=== PATIENT | female | born 1955 | race Caucasian/White ===

== ENCOUNTER 2022-01-06 19:01 | Emergency (ER) | payer MEDICARE, OTHER, SELFPAY ==
--- NOTE | 2022-01-06 19:28 | ED.URI ---
HPI - URI/Sore Throat General Chief Complaint: Upper Respiratory Infection Stated Complaint: ear pain and sore throat Time Seen by Provider: 01/06/22 19:29 Source: patient and RN notes reviewed History of Present Illness HPI Narrative: Patient is 66-year-old female who presents the urgent care with complaints of left ear pain and sore throat that started last night. Patient states that she took Aleve with mild improvement. Patient denies of any ill exposures but she is concerned for strep because she is around her grandkids. Also reports of a mild headache without fever, nausea or vomiting. No other acute complaints. No acute distress noted. Patient aware of the plan of care. Some parts of this dictation were generated by voice recognition software and may contain typographical and/or grammatical inaccuracies. Related Data Home Medications Medication Instructions Recorded Confirmed chlorthalidone 25 mg tablet 25 mg PO DAILY 01/06/22 01/06/22 famotidine 20 mg tablet 20 mg PO DAILY 01/06/22 01/06/22 levothyroxine 137 mcg tablet 137 mcg PO DAILY 01/06/22 01/06/22 Allergies Allergy/AdvReac Type Severity Reaction Status Date / Time No Known Allergies Allergy Unverified 01/06/22 19:39 Review of Systems Review of Systems: CONSTITUTIONAL: Denies fever, chills, or sweats. EYES: Denies visual changes, redness, or discharge. ENT: Reports of left otalgia and sore throat CARDIOVASCULAR: Denies chest pain, palpitations, or edema. RESPIRATORY: Denies cough or dyspnea. GASTROINTESTINAL: Denies abdominal pain, nausea, vomiting, or diarrhea. GENITOURINARY: Denies dysuria or hematuria. SKIN: Denies rash or itching. MUSCULOSKELETAL: Denies back pain, joint pain, or myalgia. NEUROLOGIC: Reports of headache All other systems reviewed are negative, except as documented in HPI. PMFSH Social History Social History Alcohol intake: current Comments At the time of my signature, I reviewed and agree with the nursing past medical, surgical, social, and family history. There is no relevant family history pertinent to the patient complaint. Exam Narrative: GENERAL: This is a well-nourished, well-developed patient, in no apparent distress. HEAD: normocephalic, atraumatic. EYES: PERRL. Sclera clear/white. Vision is grossly intact. EARS: External ears normal, auditory canals clear and without drainage, TMs normal without perforation. Hearing grossly intact. NOSE: External nose normal with no obvious nasal discharge, nares without redness, no rhinorrhea. THROAT: Mucous membranes moist, mild erythema noted to the left posterior oropharynx with moderate postnasal drainage NECK: Neck supple CARDIOVASCULAR: Regular rate and rhythm without murmurs, gallops, or rubs. RESPIRATORY: Clear to auscultation. Breath sounds equal bilaterally. No wheezes, rales, or rhonchi. SKIN: warm, intact with no suspicious lesions or rash, good texture and turgor. NEURO: awake, alert, and oriented to person, place and time. There were no obvious focal neurologic abnormalities. EXTREMITIES: No clubbing, cyanosis, or edema. Course Course Level of Care: Express Care Visit Vital Signs Vital signs: Vital Signs Temperature 98.3 F 01/06/22 19:41 Pulse Rate 106 H 01/06/22 19:41 Respiratory Rate 16 01/06/22 19:41 Blood Pressure 150/73 H 01/06/22 19:41 Pulse Oximetry 98 01/06/22 19:41 Oxygen Delivery Room Air 01/06/22 19:41 Temperature 98.3 F 01/06/22 19:41 Pulse Rate 106 H 01/06/22 19:41 Respiratory Rate 16 01/06/22 19:41 Blood Pressure 150/73 H 01/06/22 19:41 Pulse Oximetry 98 01/06/22 19:41 Oxygen Delivery Room Air 01/06/22 19:41 Reviewed-patient is informed that they may have pre-hypertension or hypertension based on a blood pressure reading in the department. I recommend the patient call the primary care provider listed on their discharge instructions or a physician of their choice this week to arrange follow-up for lazarus
[2022-01-06 19:41] VITALS: BP 150/73; PULSE 106; RESP 16; TEMP 36.8; O2SAT 98
== END 2022-01-06 19:59 | disposition home or self-care (01) ==
PROVIDERS: Emergency Provider Nurse Practitioner Family; PCP Internal Medicine
DX: J02.9 Acute pharyngitis, unspecified (principal); I10 Essential (primary) hypertension; K21.9 Gastro-esophageal reflux disease without esophagitis
CPT/HCPCS: 87081; 87880; 99203; G0463

== ENCOUNTER 2022-03-05 10:03 | Emergency (ER) | payer MEDICARE, OTHER, SELFPAY ==
[2022-03-05 10:12] VITALS: BP 149/61; PULSE 108; RESP 16; TEMP 36.1; O2SAT 98
--- NOTE | 2022-03-05 12:36 | ED.URI ---
HPI - URI/Sore Throat General Chief Complaint: Upper Respiratory Infection Stated Complaint: sore throat w spots Time Seen by Provider: 03/05/22 12:20 Source: patient, RN notes reviewed and old records reviewed Mode of arrival: ambulatory Limitations: no limitations History of Present Illness HPI Narrative: 66 year old female accompanied by spouse who is also ill presents to express care with complaints of sore throat with white spot on tonsils, low grade fevers since Thursday Patient reports that she has been gargling with salt water which has helped some but continues to have discomfort.Patient has been COVID vaccinated and also has had flu shot. MD elicited complaint: fever (low grade) and sore throat Onset (ago): day(s) (2 days ago) Pain scale (0-10): 6 Treatments prior to arrival: other (salt water gargles) Related Data Home Medications Medication Instructions Recorded Confirmed chlorthalidone 25 mg tablet 25 mg PO DAILY 01/06/22 03/05/22 famotidine 20 mg tablet 20 mg PO DAILY 01/06/22 03/05/22 levothyroxine 137 mcg tablet 137 mcg PO DAILY 01/06/22 03/05/22 Allergies Allergy/AdvReac Type Severity Reaction Status Date / Time No Known Allergies Allergy Unverified 03/05/22 12:15 Review of Systems Review of Systems: CONSTITUTIONAL: Denies malaise, chills, sweats, low grade fever. EYES: Denies visual changes, redness, or discharge. ENT: Reports rhinorrhea, congestion, no sinus pain,no otalgia and positive sore throat. CARDIOVASCULAR: Denies chest pain, palpitations, or edema. RESPIRATORY: No reported cough.? Denies dyspnea. GASTROINTESTINAL: Denies abdominal pain, nausea, vomiting, diarrhea SKIN: Denies rash or itching. MUSCULOSKELETAL: Denies myalgia. NEUROLOGIC: Denies headache. All systems reviewed & are unremarkable except as noted in HPI and below PMFSH Past Medical History Medical History (Updated 03/06/22 @ 15:26 by Farideh Jorge NP) Elevated cholesterol GERD (gastroesophageal reflux disease) Hypertension Hypothyroid Surgical History Surgical History (Updated 03/06/22 @ 15:30 by Farideh Jorge NP) History of thyroid surgery Social History Social History (Updated 03/06/22 @ 15:30 by Farideh Jorge NP) Smoking status: Never smoker Alcohol intake: current Substance use: never Living arrangements: with family Gender identity (if verbalized by the patient): Female Comments At time of signature, agree with nursing past medical, surgical, social and family history. There is no relevant family history pertinent to the presenting complaint Exam Narrative: GENERAL: Well-appearing, well-nourished, and in no acute distress. HEAD: Normocephalic EYES: PERRLA, conjunctivae clear ENT: Nares clear, turbinates edematous and erythematous, clear discharge. Mucous membranes moist. TM pearly miranda with dull light reflex bilaterally; no tragal tenderness. Oropharynx erythematous without lesions. Tonsils enlarged and with white exudates, no drooling, no hoarseness, no trismus, uvula midline. NECK: Supple. No lymphadenopathy CHEST: Clear to auscultation, breath sounds equal. No wheezing, rhonchi, rales, or stridor. No respiratory distress, speaks in full sentences.no cough noted SAO2 98% on room air HEART: Regular rate and rhythm. No murmur heard. SKIN: Warm, dry, no rash. NEURO: Alert and oriented x3. PSYCH: Normal mood and affect Course Course Emergency Course: Patient is aware of diagnosis, understands and agrees to treatment plan.? Anticipatory guidance given.? Patient agrees to follow-up as directed and is aware of reasons to seek care at the emergency department. Portions of this record may have been created with voice recognition software Level of Care: Express Care Visit Vital Signs Vital signs: Vital Signs Temperature 36.1 C L 03/05/22 10:12 Pulse Rate 108 H 03/05/22 10:12 Respiratory Rate 16 03/05/22 10:12 Blood Pressure 149/61 H 12
== END 2022-03-05 12:45 | disposition home or self-care (01) ==
PROVIDERS: Emergency Provider Registered Nurse; PCP Physician Assistant
DX: J02.0 Streptococcal pharyngitis (principal); E78.00 Pure hypercholesterolemia, unspecified; K21.9 Gastro-esophageal reflux disease without esophagitis; I10 Essential (primary) hypertension; E03.9 Hypothyroidism, unspecified
CPT/HCPCS: 99213; G0463

== ENCOUNTER 2022-10-06 09:30 | Emergency (ER) | payer MEDICARE, OTHER, SELFPAY ==
[2022-10-06] VITALS (7 sets, daily range): BP systolic 123–159; BP diastolic 64–98; PULSE 65–99; RESP 16–18; TEMP 36.3–36.7; O2SAT 96–99
--- NOTE | ~2022-10-06 | XR_ITS ---
EXAMINATION: XR knee LT 3V DATE: 10/06/2022 10:37 INDICATION: Left knee pain TECHNIQUE: Three views of the left knee were obtained. COMPARISON: None. FINDINGS: Alignment is normal. No fracture or osteochondral lesion. There is mild tricompartmental os teoarthritis characterized by tiny marginal osteophytes. No joint effusion/synovitis. Soft tissues a re unremarkable. IMPRESSION: 1. No acute osseous abnormality. Reviewed, dictated and finalized at location B.
--- NOTE | ~2022-10-06 | XR_ITS ---
EXAMINATION: XR knee RT 3V DATE: 10/06/2022 10:37 INDICATION: Right knee pain TECHNIQUE: Three views of the right knee were obtained. COMPARISON: None. FINDINGS: Alignment is normal. No fracture or osteochondral lesion. There is mild tricompartmental os teoarthritis characterized by tiny marginal osteophytes. No joint effusion/synovitis. Soft tissues a re unremarkable. IMPRESSION: 1. No acute osseous abnormality. Reviewed, dictated and finalized at location B.
--- NOTE | ~2022-10-06 | XR_ITS ---
EXAMINATION: XR toe 1st LT min 2V INDICATION: Left first toe pain TECHNIQUE: Three views of the left first toe are obtained. COMPARISON: None available FINDINGS: Bone alignment is normal. No displaced fracture is identified. There is moderate osteoarthr itis at the first metatarsophalangeal joint. IMPRESSION: 1. No acute osseous abnormality. Reviewed, dictated and finalized at location B.
--- NOTE | ~2022-10-06 | CT_ITS ---
EXAMINATION: CT brain wo con INDICATION: Head injury COMPARISON: None TECHNIQUE: Standard unenhanced head CT. The dose-length product (DLP) was 605.33 mGy-cm. The mA was a djusted according to patient size. Iterative reconstruction technique was employed. FINDINGS: There is a 7 mm x 6 mm area of hyperattenuation in the anterior aspect of the left corpus c allosum. An adjacent calcification is seen inferiorly. No evidence of acute infarction. There is mild periventricular and subcortical hypodensity probably related to small vessel ischemic disease. There is mild prominence of the sulci and ventricles related to cerebral atrophy. Intracranial calcified c erebral atherosclerosis is noted. There are no extra-axial collections. There is no mass effect or mi dline shift. The orbits and soft tissues are unremarkable. The visualized sinuses and mastoid air rome ls are well aerated. IMPRESSION: 1. Small focus of hyperattenuation in the anterior aspect of the left corpus callosum. Although diffe rential includes focal hemorrhage in the presence of head injury, finding may reflect a small mass or vascular abnormality. Follow-up MRI without and with contrast is recommended. 2. Age related findings. These findings and recommendations were discussed with Dr. Holli Armijo MD in the Emergency Departme nt at 1041 hours on 10/06/2022. Reviewed, dictated and finalized at location B. IMPRESSION: 1. Small focus of hyperattenuation in the anterior aspect of the left corpus ca llosum. Although differential includes focal hemorrhage in the presence of head injury, finding may reflect a small mass or vascular abnormality. Follow-up MR I without and with contrast is recommended. 2. Age related findings. These findings and recommendations were discussed with Dr. Holli Armijo MD in the Emergency Department at 1041 hours on 10/06/2022.
--- NOTE | 2022-10-06 09:52 | ED.FALL ---
HPI - Fall General Chief Complaint: Fall Stated Complaint: fall/ head injury Time Seen by Provider: 10/06/22 09:52 History of Present Illness HPI Narrative: 67-year-old female patient is here with complaints of a ground level fall after she tripped over some gravel and landed on the concrete. She states that she hit her head very hard on the right side and has headache mostly on the left side now. She denies any loss of consciousness. She denies any neck pain. She also struck both her knees on the gravel and has pain more in the left knee than the right. She has been able to ambulate since the fall. She denies any injuries to her upper extremities. She denies any difficulty breathing. Patient takes occasional aspirin but has not taken any in the last few days. Otherwise she is not on any blood thinners. She does take medications for hypercholesterolemia and thyroid. Patient is unsure about her tetanus. Related Data Home Medications Medication Instructions Recorded Confirmed chlorthalidone 25 mg tablet 25 mg PO DAILY 01/06/22 10/06/22 levothyroxine 137 mcg tablet 137 mcg PO DAILY 01/06/22 10/06/22 atorvastatin 10 mg tablet 10 mg PO DAILY 10/06/22 10/06/22 Allergies Allergy/AdvReac Type Severity Reaction Status Date / Time lisinopril AdvReac Cough Verified 10/06/22 09:46 Review of Systems Review of Systems: All systems reviewed & are unremarkable except as noted in HPI and below PMFSH Past Medical History Medical History Elevated cholesterol GERD (gastroesophageal reflux disease) Hypertension Hypothyroid Surgical History Surgical History History of thyroid surgery Social History Social History Smoking status: Never smoker Alcohol intake: current Substance use: never Living arrangements: with family Gender identity (if verbalized by the patient): Female Exam Narrative: Alert female patient who appears in no acute distress. Vital signs are stable. Initial blood pressure is slightly elevated at 144/98. HEENT: patient has a superficial abrasion on the outer edge of the right supraorbital area with no hematoma or lacerations in the vicinity. The rest of the scalp was nontender. No other facial injuries or abnormalities are noted. Pupils are midsize equal and reactive to light. EOMs are intact. Ear nose throat appeared to be normal. Neck is supple. There is no midline tenderness. There are no distracting injuries. Chest wall is nontender. Breath sounds are audible bilaterally. Heart tones are regular. Abdomen is soft and nontender. Bowel sounds are active. No tenderness on pelvic rock. Both knees have abrasions in prepatellar areas without any swelling or hematoma. There is tenderness on palpation of the patella on the left side greater than the right. The range of motion of the knee is intact and in full. The patient is able to ambulate without difficulty. A small abrasion is noted to the left toe and there is slight bruising around it. Patient does have tenderness on palpation of the big toe on the left side. Upper extremities are atraumatic. Skin is warm and dry skin turgor is normal. Neurologic examination is grossly normal. Mood and affect are normal. Course Course Emergency Course: X-ray of bilateral knees and toe shows no fracture. CT of the head has been reported as positive for a Small focus of hyperattenuation in the anterior aspect of the left corpus callosum with differential including hemorrhage, mass or AV malformation according to the radiologist. Recommendations are either an MRI with and without or a CT scan in 6-8 hours. Since there is no MRI available here I did discuss the patient with the hospitalist nurse practitioner Nancy Sorensen for a possible admission and neuro checks and repeat
[2022-10-06] MEDS: TETANUS,DIPHTHERIA,AC PERTUSSIS ADULT 0.5 ML (ADACEL) IM (10:21)
== END 2022-10-06 14:25 | disposition short-term general hospital (02) ==
PROVIDERS: Emergency Provider Emergency Medicine; PCP Physician Assistant
DX: S05.11XA Contusion of eyeball and orbital tissues, right eye, initial encounter (principal); S80.212A Abrasion, left knee, initial encounter; S80.211A Abrasion, right knee, initial encounter; R93.0 Abnormal findings on diagnostic imaging of skull and head, not elsewhere classified; I10 Essential (primary) hypertension; E03.9 Hypothyroidism, unspecified; Z23 Encounter for immunization; Z79.899 Other long term (current) drug therapy; Z79.82 Long term (current) use of aspirin; W01.0XXA Fall on same level from slipping, tripping and stumbling without subsequent striking against object, initial encounter
CPT/HCPCS: 70450; 73562; 73660; 90471; 90715; 99285

== ENCOUNTER 2023-09-04 10:17 | Emergency (ER) | payer MEDICARE, OTHER, SELFPAY ==
[2023-09-04 10:29] VITALS: BP 117/60; PULSE 97; RESP 18; TEMP 36.7; O2SAT 99
--- NOTE | 2023-09-04 11:09 | ED.FEMALEGU ---
HPI - Female Genitourinary General Chief complaint: Urogenital-Female Stated complaint: nausea/blood in urine last night Time Seen by Provider: 09/04/23 11:00 Source: patient, RN notes reviewed and old records reviewed Mode of arrival: ambulatory Limitations: no limitations History of Present Illness HPI Narrative: 68 year old female who presents to [facility] care with complaint of urinary symptoms of frequency, dribbling of urine, nausea and vomiting, and also hematuria and pain with urination starting last night with pressure in the suprapubic area. Patient reports that she is feeling better today but continues to have frequency and voiding in small amounts and burning with urination.. Patient reports no nausea today and has been trying to increase her water consumption and decreased the amount of coffee she drinks.Patient denies any vaginal discharge or itching, no concern for STD exposure,, no history of kidney stones. Patient is on daily Plavix. MD elicited complaint: UTI Onset (ago): day(s) (1) Location of symptoms: suprapubic Severity: moderate Quality of pain: aching Vaginal discharge: none Vaginal bleeding: none Treatment prior to arrival: acetaminophen and other Related Data Home Medications Medication Instructions Recorded Confirmed chlorthalidone 25 mg tablet 25 mg PO DAILY 01/06/22 10/06/22 levothyroxine 137 mcg tablet 137 mcg PO DAILY 01/06/22 10/06/22 atorvastatin 10 mg tablet 10 mg PO DAILY 10/06/22 10/06/22 clopidogrel 75 mg tablet mg 09/04/23 Allergies Allergy/AdvReac Type Severity Reaction Status Date / Time lisinopril AdvReac Cough Verified 09/04/23 10:38 Review of Systems Review of Systems: CONSTITUTIONAL: Denies fever, chills, or sweats. CARDIOVASCULAR: Denies chest pain, palpitations, or edema. RESPIRATORY: Denies cough or dyspnea. GASTROINTESTINAL: Denies abdominal pain,states nausea last evening, vomiting, no diarrhea. GENITOURINARY: Reports dysuria, frequency, urgency. Denies flank pain positive for hematuria, suprapubic pain last evening reports none at present time. SKIN: Denies rash or itching. MUSCULOSKELETAL: Denies back pain or myalgia. Denies CVA tenderness NEUROLOGIC: Denies headache All systems reviewed & are unremarkable except as noted in HPI and below PMFSH Past Medical History Medical History Brain aneurysm X2 one coiled and one stented Elevated cholesterol GERD (gastroesophageal reflux disease) Hypertension Hypothyroid Surgical History Surgical History History of thyroid surgery Family History Family History Mother Brain aneurysm Social History Social History Smoking status: Never smoker Alcohol intake: current Substance use: never Living arrangements: with family Gender identity (if verbalized by the patient): Female Comments At time of signature, agree with nursing past medical, surgical, social and family history. There is no relevant family history pertinent to the presenting complaint Exam Narrative: GENERAL: Well-appearing, well-nourished, and in no acute distress. HEAD: Normocephalic, atraumatic. NECK: Supple.no lymphadenopathy CHEST: Clear to auscultation. No respiratory distress.SAO2 99% on room air HEART: Regular rate and rhythm. No murmur heard. Normal peripheral pulses. ABDOMEN: Soft, nontender, nondistended, normal active bowel sounds. No CVA tenderness, reports some suprapubic pressure last evening none at present time, denies any present nausea, urinary frequency ,burning and urgency, voiding in small amounts. EXTREMITIES: Normal range of motion. No edema. SKIN: Warm, dry, no rash. NEURO: No focal deficits. Alert and oriented x3. Course Course Emergency Course: Patient is aware of diagnosis, understands
== END 2023-09-04 11:33 | disposition home or self-care (01) ==
PROVIDERS: Emergency Provider Registered Nurse; PCP Physician Assistant
DX: N39.0 Urinary tract infection, site not specified (principal); E78.00 Pure hypercholesterolemia, unspecified; K21.9 Gastro-esophageal reflux disease without esophagitis; I10 Essential (primary) hypertension; E03.9 Hypothyroidism, unspecified; Z79.01 Long term (current) use of anticoagulants
CPT/HCPCS: 81003; 87086; 87088; 99213; G0463